=== PATIENT | male | born 1970 | race Caucasian/White ===

== ENCOUNTER 2016-11-14 05:53 | Inpatient (IN) | payer MEDICAID ==
[~2016-11-14] VITALS: Ht 180.3 cm; Wt 152.7 kg
[~2016-11-14 05:53] MED LIST: BACL-19 PO; CYCL-259 PO; DICL50TA4 PO; GABA300C10 PO; HYDR-3307 PO; PANT40TA5 PO
[2016-11-14] MEDS ORDERED: MIDAZOLAM 1 MG/ML, 2ML ONE ×2 (06:43→09:31)
[2016-11-14] MEDS ORDERED: FENTANYL PF 250 MCG/5ML ONE (06:43)
[2016-11-14] MEDS ORDERED: BUPIVACAINE/PF-EPI 0.5% 1:200K ONE (07:09)
[2016-11-14] MEDS ORDERED: THROMBIN 5,000 UNIT VIAL TP ONE (07:10)
[2016-11-14] MEDS ORDERED: BACITRACIN 50,000 UNIT ONE (07:10)
[2016-11-14] MEDS ORDERED: LACTATED RINGERS 1,000 ML IV SCH (07:14)
[2016-11-14] MEDS ORDERED: LABETALOL 5MG/ML, 20ML IV PRN (07:30)
[2016-11-14] MEDS ORDERED: hydrALAzine 20 MG/ML, 1ML IV PRN (07:30)
[2016-11-14] MEDS ORDERED: MEPERIDINE/PF 25MG/0.5ML IVPush PRN (07:30)
[2016-11-14] MEDS ORDERED: OXYcodone 5 MG/5 ML ORAL.SOL UDC PO PRN (07:30)
[2016-11-14] MEDS ORDERED: ACETAMINOPHEN 325 MG TABLET PO PRN (07:30)
[2016-11-14] MEDS ORDERED: METOCLOPRAMIDE 5 MG/ML, 2ML IV PRN (07:30)
[2016-11-14] MEDS ORDERED: PROMETHAZINE 25 MG/ML, 1ML IV PRN (07:30)
[2016-11-14] MEDS ORDERED: GLYCOPYRROLATE 0.2MG/1ML ONE (07:35)
[2016-11-14] MEDS ORDERED: ROCURONIUM 10 MG/ML ONE (07:35)
[2016-11-14] MEDS ORDERED: CEFAZOLIN 1,000 MG ONE (07:35)
[2016-11-14] MEDS ORDERED: NEOSTIGMINE 1 MG/ML, 10ML ONE (07:35)
[2016-11-14] MEDS ORDERED: hydrALAzine 20 MG/ML, 1ML ONE (07:35)
[2016-11-14] MEDS ORDERED: PROPOFOL 10 MG/ML, 20ML ONE (07:35)
[2016-11-14] MEDS ORDERED: LABETALOL 5MG/ML ONE (07:35)
[2016-11-14] MEDS ORDERED: FENTANYL PF 100 MCG/2ML ONE ×2 (08:19→09:31)
[2016-11-14] MEDS ORDERED: DIAZEPAM 5 MG/ML, 2ML ONE (09:31)
[2016-11-14] MEDS ORDERED: HYDROmorphone 2 MG/ML, 1ML ONE (09:31)
[2016-11-14] MEDS: FENTANYL PF 100 MCG/2ML IV PRN ×2 (09:32→09:40)
[2016-11-14] MEDS ORDERED: OXYcodone 5 MG/5 ML ORAL.SOL UDC ONE (09:42)
[2016-11-14] MEDS: HYDROmorphone 1 MG/ML, 1ML IV PRN ×3 (09:55→10:17)
[2016-11-14] MEDS ORDERED: MIDAZOLAM 1 MG/ML, 2ML IVPush PRN (10:00)
[2016-11-14] MEDS ORDERED: DIAZEPAM 5 MG/ML, 2ML IVPush PRN (10:00)
[2016-11-14] MEDS ORDERED: ONDANSETRON 2MG/ML, 2ML ONE (10:32)
[2016-11-14] MEDS: ONDANSETRON 2MG/ML, 2ML IVPush PRN ×2 (10:33→10:34)
[2016-11-14] MEDS ORDERED: MAGNESIUM HYDROXIDE 8%, 30ML UDC PO PRN (11:30)
[2016-11-14] MEDS ORDERED: PROMETHAZINE 25 MG/ML, 1ML IM PRN (11:30)
[2016-11-14] MEDS ORDERED: HYDROcodone/APAP 10/325 MG TABLET PO PRN (11:30)
[2016-11-14] MEDS ORDERED: DIPHENHYDRAMINE 50 MG CAPSULE PO PRN (11:30)
[2016-11-14] MEDS ORDERED: DIPHENHYDRAMINE 50 MG/ML, 1ML IVPush PRN (11:30)
[2016-11-14] MEDS ORDERED: ONDANSETRON 2MG/ML, 2ML IV PRN (11:30)
[2016-11-14] MEDS ORDERED: HYDROmorphone 2 MG/ML, 1ML IM PRN (11:30)
[2016-11-14] MEDS ORDERED: HYDROmorphone 2MG TABLET PO PRN (11:30)
[2016-11-14] MEDS ORDERED: BISACODYL 10 MG SUPP PR PRN (11:30)
[2016-11-14] MEDS ORDERED: DIPHENHYDRAMINE 50 MG/ML, 1ML IM PRN (11:30)
[2016-11-14] MEDS ORDERED: GABAPENTIN 300 MG CAPSULE PO PRN (12:00)
[2016-11-14 14:57] VITALS: BP 84/52
[2016-11-14] MEDS: CEFAZOLIN PMX 1GM/50ML 50 ML IVPB SCH (16:19)
[2016-11-14] MEDS: NS + 20MEQ KCL 1,000 ML IV SCH (16:26)
[2016-11-14 20:07] VITALS: BP 123/72
[2016-11-14] MEDS ORDERED: ZOLPIDEM 5MG TABLET PO PRN (21:00)
[2016-11-14] MEDS: CYCLOBENZAPRINE 10 MG TABLET PO SCH (22:45)
[2016-11-14] MEDS: BACLOFEN 10 MG TABLET PO SCH (22:46)
[2016-11-14 23:25] VITALS: BP 141/75
[2016-11-15] MEDS: NS + 20MEQ KCL 1,000 ML IV SCH ×2 (00:30→14:52)
[2016-11-15] MEDS: CEFAZOLIN PMX 1GM/50ML 50 ML IVPB SCH (01:32)
[2016-11-15 03:30] VITALS: BP 126/57
[2016-11-15 07:01] VITALS: BP 118/69
[2016-11-15] MEDS: PANTOPROZOLE 40MG TABLET PO SCH (07:30)
[2016-11-15] MEDS: BACLOFEN 10 MG TABLET PO SCH ×2 (09:00→21:15)
[2016-11-15] MEDS: CYCLOBENZAPRINE 10 MG TABLET PO SCH ×2 (09:00→21:15)
[2016-11-15] MEDS: SENNA/DOCUSATE TABLET PO SCH (09:00)
[2016-11-15] MEDS: OXYcodone/APAP 10/325MG TABLET PO PRN ×3 (09:26→19:22)
[2016-11-15 12:50] VITALS: BP 139/96
[2016-11-15 20:31] VITALS: BP 144/82
[2016-11-16] MEDS: OXYcodone/APAP 10/325MG TABLET PO PRN ×3 (00:25→11:46)
[2016-11-16] MEDS: NS + 20MEQ KCL 1,000 ML IV SCH ×2 (01:30→08:24)
[2016-11-16 03:10] VITALS: BP 143/73
[2016-11-16 07:33] VITALS: BP 124/71
[2016-11-16] MEDS: PANTOPROZOLE 40MG TABLET PO SCH (08:23)
[2016-11-16] MEDS: BACLOFEN 10 MG TABLET PO SCH (08:23)
[2016-11-16] MEDS: SENNA/DOCUSATE TABLET PO SCH (08:23)
[2016-11-16] MEDS: CYCLOBENZAPRINE 10 MG TABLET PO SCH (08:23)
[2016-11-16] MEDS ORDERED: OXYC-229 PO (10:01)
[2016-11-16] MEDS ORDERED: CYCL-259 PO (10:01)
[2016-11-16 11:45] VITALS: BP 154/92
== END 2016-11-16 12:15 | disposition home or self-care (01) | DRG 520 ==
LOC: OUT 05:53 → 4NOR 11:00 → OUT 11:35 → 4NOR 11:36 → DCLOUNGE 11-16 11:55
PROVIDERS: ADMIT Neurological Surgery; ATTEND Neurological Surgery
PROC: 01NR0ZZ Release Sacral Nerve, Open Approach (ICD-10-PCS; 2016-11-14)
PROC: 0SB20ZZ Excision of Lumbar Vertebral Disc, Open Approach (ICD-10-PCS; 2016-11-14)
PROC: 01NB0ZZ Release Lumbar Nerve, Open Approach (ICD-10-PCS; principal; 2016-11-14 07:30)
DX: M48.07 Spinal stenosis, lumbosacral region (principal); M48.06 Spinal stenosis, lumbar region; M51.16 Intervertebral disc disorders with radiculopathy, lumbar region; M19.90 Unspecified osteoarthritis, unspecified site; F17.210 Nicotine dependence, cigarettes, uncomplicated; Z88.5 Allergy status to narcotic agent; Z91.013 Allergy to seafood; Z91.018 Allergy to other foods; Z82.3 Family history of stroke; Z82.61 Family history of arthritis; Z83.3 Family history of diabetes mellitus; Z82.49 Family history of ischemic heart disease and other diseases of the circulatory system
CPT/HCPCS: 72100; J0690; J1170; J2250; J2270; J2405; J2704; J2710; J3010; J3480; J3490; J0360